=== PATIENT | female | born 1970 | race Caucasian/White ===

== ENCOUNTER 2018-10-29 22:25 | Observation (INO) | payer BC, SELFPAY ==
[2018-10-29] MEDS ORDERED: Ondansetron PF 4 MG/2 ML Vial ONE (23:04)
[2018-10-29 23:49] LABS: Hemoglobin 15.2 g/dL (12.0-16.0); Mean Corpuscular Hemoglobin 30.5 pg (27.0-31.0); Mean Corpuscular Volume 89.8 fL (78.0-98.0); Mean Platelet Volume 8.5 fL (7.4-10.4); Platelet Count 171 thou/uL (130-400); RBC Distribution Width 11.1 % (11.5-14.5); Red Blood Cell (RBC) Count 4.98 mill/uL (4.20-5.40); White Blood Cell (WBC) Count 9.8 thou/uL (4.8-10.8)
[2018-10-30 00:05] LABS: Band 5 % (5-11); Eosinophils 1 % (0-10); Lymphocytes 3 % (21-51); MDiff Complete? YES; Monocytes 4 % (0-10); Neutrophil 86 % (42-75); Reactive Lymphocytes 1 % (0-10)
[2018-10-30 00:12] LABS: BHCG - Serum Negative (NEGATIVE); Pregs Control Background? CLEAR/WHITE (CLR/WHITE); Pregs Control Bar Appear? YES (CONTROL BAR)
[2018-10-30] MEDS ORDERED: Morphine 4 MG/ML VIAL ONE (00:13)
[2018-10-30] MEDS ORDERED: Promethazine HCl 25 MG/ML VIAL ONE (00:13)
[2018-10-30 00:29] LABS: ALT (SGPT) 14 U/L (8-55); AST (SGOT) 25 U/L (5-34); Albumin 4.5 g/dL (3.5-5.0); Alkaline Phosphatase 79 U/L (40-150); Anion Gap 13 mmol/L (10-20); BUN (Urea Nitrogen) 18 mg/dL (7.0-18.7); Bilirubin, Total 0.8 mg/dL (0.2-1.2); Calc. Creatinine Clearance 0 mL/min (70-130); Calcium 10.1 mg/dL (7.8-10.44); Carbon Dioxide 22 mmol/L (22-29); Chloride 109 mmol/L (98-107); Estimated GFR-MDRD 77; Glucose 137 mg/dL (70-105); Lipase 25 U/L (8-78); Potassium 3.6 mmol/L (3.5-5.1); Protein, Total 7.5 g/dL (6.0-8.3); Sodium 140 mmol/L (136-145)
[2018-10-30] MEDS ORDERED: metroNIDAZOLE 500 MG/100 ML BAG ONE (01:02)
[2018-10-30] MEDS ORDERED: Vancomycin HCl 500 MG VIAL ONE (02:16)
[2018-10-30] MEDS ORDERED: Vancomycin HCl 25 MG/ML Oral PO SCH ×3 (03:00→09:00)
[2018-10-30] MEDS ORDERED: Vancomycin HCl 500 MG in Sodium Chloride 0.9% 100 ML IVPB SCH (03:00)
[2018-10-30 03:01] LABS: Bilirubin Negative (Negative); Blood, Urine Negative (Negative); Glucose, Urine (Dipstick) Negative (Negative); Leukocyte Negative (Negative); Nitrite Negative (Negative); Protein, Urine (Dipstick) Negative (Neg-Trace); Urobilinogen 0.2 mg/dL (0.2-1.0)
[2018-10-30 03:02] LABS: Clarity Clear (Clear)
[2018-10-30] MEDS ORDERED: Guaifenesin DM 100-10/5 ML UDCUP PO PRN (03:12)
[2018-10-30] MEDS ORDERED: Ondansetron PF 4 MG/2 ML Vial IVP PRN (03:12)
[2018-10-30] MEDS ORDERED: Acetaminophen 325 MG TAB PO PRN (03:12)
[2018-10-30] MEDS ORDERED: Zolpidem Tartrate 5 MG TAB PO PRN (03:12)
[2018-10-30 04:19] LABS: Hemoglobin 13.5 g/dL (12.0-16.0); Mean Corpuscular HGB CONC 33.9 g/dL (32.0-36.0); Mean Corpuscular Volume 91.5 fL (78.0-98.0); Mean Platelet Volume 7.9 fL (7.4-10.4); Platelet Count 147 thou/uL (130-400); RBC Distribution Width 11.2 % (11.5-14.5); Red Blood Cell (RBC) Count 4.36 mill/uL (4.20-5.40); White Blood Cell (WBC) Count 7.9 thou/uL (4.8-10.8)
[2018-10-30] MEDS ORDERED: Ondansetron PF 4 MG/2 ML Vial ONE (04:28)
[2018-10-30] MEDS: metroNIDAZOLE 500 MG in Premix Bag 1 BAG IVPB SCH ×3 (04:33→21:42)
[2018-10-30 04:53] LABS: Band 7 % (5-11); Lymphocytes 4 % (21-51); MDiff Complete? YES; Monocytes 5 % (0-10); Neutrophil 84 % (42-75)
[2018-10-30 06:33] LABS: Lactic Acid 2.3 mmol/L (0.5-2.2)
[2018-10-30] MEDS ORDERED: ISOVUE-370 76%-LOCM 1 ML ONE (08:11)
[2018-10-30] MEDS: Vancomycin HCl 25 MG/ML Oral PO SCH ×4 (09:50→19:51)
--- NOTE | 2018-10-30 09:57 | CT ---
PRELIMINARY REPORT/[facility]/EMERGENTY AFTER-HOURS PROCEDURE CT Abdomen and Pelvis With Contrast EXAM DATE/TIME: 10/30/2018 1:20 AM CLINICAL HISTORY: 48 years old, female; Pain; Abdominal pain; Acute; Patient HX: 48/f PT presents with complaint of trent sea, vomiting, diarrhea, and abdominal cramping for the past three days. States she has a HX of lupus and cdiff, has had a fecal transplant. States this feels similar to her last episode of cdiff. Descr ibes very watery stool, frequent diarrhea. Also having body aches. TECHNIQUE: Imaging protocol: Axial computed tomography images of the abdomen and pelvis with intravenous contras t. Coronal reformatted images were created and reviewed. COMPARISON: No relevant prior studies available. FINDINGS: Lower thorax: No acute findings. ABDOMEN: Liver: No liver masses. Gallbladder and bile ducts: Surgical changes of cholecystectomy. No ductal dilation. Pancreas: No pancreatic mass or ductal dilation. Spleen: No splenic masses. Adrenals: No adrenal nodules. Kidneys and ureters: Symmetric perfusion of the kidneys. No enhancing mass or hydronephrosis. Stomach and bowel: Surgical changes of the greater curvature of the stomach. The colon is fluid fille d. No significant wall thickening or pericolonic inflammation. Appendix: Normal appendix. PELVIS: Bladder: Unremarkable as visualized. Reproductive: The uterus and ovaries are nonvisualized. ABDOMEN and PELVIS: Intraperitoneal space: Normal. No free air. No significant fluid collection. Bones/joints: No acute fracture. No dislocation. Soft tissues: Unremarkable. Vasculature: Normal. No abdominal aortic aneurysm. Lymph nodes: Normal. No enlarged lymph nodes. IMPRESSION: Fluid-filled colon consistent with provided history of diarrhea. No significant colonic wall thickeni ng or pericolonic inflammation. No bowel obstruction. Thank you for allowing us to participate in the care of your patient. Dictated and Authenticated by: Nithya Daugherty MD 10/30/2018 2:45 AM Central Time ([place] & [place]) FINAL REPORT EMERGENCY AFTER HOURS CT ABDOMEN AND PELVIS: Date: 10/30/18 FINDINGS/IMPRESSION: I agree with the preliminary report provided by Lakeisha. POS:
[2018-10-30] MEDS ORDERED: Morphine 2 MG/ML SYRINGE SLOW IVP PRN (10:16)
[2018-10-30] MEDS ORDERED: Bacteriostatic Water 30 ML VIAL FS PRN (10:23)
--- NOTE | 2018-10-30 11:34 | HP ---
CHIEF COMPLAINT: Nausea, diarrhea, and vomiting. HISTORY OF PRESENT ILLNESS: This patient is a 48-year-old female, who presented via the Emergency Department. 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 The patient has history of lupus and Sjogren disease. She has a history of recurrent C. diff colitis several years ago that ultimately failed medical therapy and required fecal transplant. The fecal transplant actually was successful for period of time. The patient on this occasion reports that she began having some nausea and diarrhea over the weekend about 3 days ago. Vomiting was most pronounced starting on Sunday. She felt like this was very similar to her prior C. diff infections. She had associated body aches in the neck area. This was a common manifestation of her lupus previously when she has had other illness. She has not been able to keep down any p.o.'s dose since yesterday. She describes her stool as watery with fatty particles and her emesis as charlene in color. REVIEW OF SYSTEMS: Denies fever. She does have some chills. She reports headache, neck pain, and general myalgias. She has some nasal congestion, sore throat, and dry mouth. Reports a dry cough since the weekend. Denies wheezes. She has some history of palpitations and chest pains, which have been present with this episode. She denies hematemesis or hematochezia. All other systems reviewed and all pertinent positives and negatives noted in history of present illness. PAST MEDICAL HISTORY: Systemic lupus erythematosus, Sjogren disease, asthma, and C. diff infection x4 in 2016, ultimately treated with fecal transplant. PAST SURGICAL HISTORY: Gastric sleeve in August of 2017, cholecystectomy in 2005, and total hysterectomy in 1998. FAMILY HISTORY: Mother had rheumatoid arthritis. She 15 years ago. Father had hypertension and 2 MIs. Brother had psoriasis. 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 She is a nonsmoker, nondrinker, and nondrug user. She lives with her . She is full code. is a surrogate decision maker. ALLERGIES: NONE. MEDICATIONS: 1. Lyrica 50 mg p.o. b.i.d. 2. Nabumetone 50 mg b.i.d. 3. Hydrochloroquine 200 mg b.i.d. 4. Promethazine 25 mg q.6 hours p.r.n. 5. Tizanidine 4 mg q.8 hours p.r.n. 6. Metoprolol 50 mg b.i.d. 7. Sertraline 100 mg daily. 8. Methylprednisolone 4 mg p.o. daily. PHYSICAL EXAMINATION: VITAL SIGNS: BP is 138/93, pulse 77, respirations 18, temperature 98.2, and O2 saturation 97% on room air. GENERAL APPEARANCE: Age-appropriate female, in no distress. She is awake, alert, oriented, pleasant, cooperative, and in no distress. HEENT: PERRL. She has some erythema of the pharynx. She has a bit of a dry oral mucosa. NECK: Some mild anterior tenderness to palpation without lymphadenopathy or JVD. HEART: Regular rate and rhythm without murmurs, gallops, or rubs. LUNGS: Clear to auscultation bilaterally. Good chest wall expansion and air exchange. ABDOMEN: Soft and nondistended. There is tenderness to palpation in the left jaqueline abdomen, epigastric area without significant guarding or rebound. No masses. No hepatosplenomegaly. EXTREMITIES: Warm and dry. No cyanosis, clubbing, or edema. Peripheral pulses present and equal. NEUROLOGIC: The patient appears fully intact with no focal deficits. PSYCH: The patient has normal affect and behavior. LABORATORY DATA: White count 9.8 and repeat was 7.9, hemoglobin 15.2, platelets 171. Sodium 140, potassium 3.6, chloride 109, CO2 is 22, BUN 18, creatinine 0.8, glucose 137, lactic acid 3.6, and calcium 10.1. LFTs normal. UA is normal. C. diff is positive. CT abdomen and pelvis shows a fluid-filled colon with some thickened colonic wall, but no other specific findings, formal read is pending. IMPRESSION AND PLAN: 1. Recurrent Clostridium difficile colitis. This patient has had 4 prior episodes ultimately being resistant to medical therapy and requiring fecal transplantation that was over 3 years ago. Now, she has recurrent episode. She has had IV vancomycin and Flagyl in the Emergency Department. We will continue with the IV metronidazole and vancomycin for now. We will consult Gastroenterology for recommendations given the fact that she has already failed medical therapies in the past. 2. Nausea and vomiting. Continue to treat symptomatically. The patient reports that she has had some adverse reaction to Zofran causing some hiccups in the past. Therefore, we will try to stay with the Phenergan. 3. History of lupus with Sjogren's. The patient is unable to take p.o.'s presently. When she is over the nausea can resume her hydroxychloroquine, tizanidine, and Lyrica in the meantime. We will give her IV prednisone, start IV methylprednisolone. Job ID: [id number]
[2018-10-30 12:28] VITALS: BMI 23.5
[2018-10-30] MEDS ORDERED: Promethazine HCl 12.5 MG in Sodium Chloride 0.9% 50 ML IVPB PRN (13:07)
[2018-10-30] MEDS: Promethazine HCl 25 MG/ML VIAL IM/IV PRN (13:10)
[2018-10-30] MEDS: Sodium Chloride 0.9% 1,000 ML IV SCH (15:21)
[2018-10-30] MEDS: Dicyclomine 10 MG CAP PO PRN (19:51)
--- NOTE | 2018-10-30 23:26 | CON ---
DATE OF CONSULTATION: 10/30/2018 REASON FOR CONSULTATION: Nausea, vomiting, diarrhea. 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 She is doing well until 4 days ago, when she began developing recurrent watery diarrhea more than 10 times a day. She describes associated abdominal cramps that travel from below up to the epigastrium, associated with lots of gurgling noises. Two days ago, she began having recurrent nausea, vomiting, and dry heaves. She denies any rectal bleeding or hematochezia. She did have some mild chills, but no apparent fever. Her symptoms are reminiscent of previous C difficile colitis, where she had 4 bouts of colitis over a span of 2 years that eventually culminated in a fecal transplant in January of 2017. She was on probiotic for several months after the fecal transplant. She had done well since that time and had a gastric sleeve with the resultant 100 pounds weight loss in the meanwhile. She has not been on any recent antibiotics. She has been on Plaquenil for lupus, but no other new medication other than Lyrica. She has no direct patient contact or any recent exposure history. PAST MEDICAL HISTORY: 1. Systemic lupus erythematosus. 2. Sjogren's. 3. Recurrent C diff infection with fecal transplant in 2017. 4. Status post gastric sleeve in 2018. 5. Status post cholecystectomy. 6. Status post total hysterectomy. CURRENT MEDICATIONS: Include: 1. Sertraline. 2. Tizanidine. 3. Promethazine p.r.n. 4. Metoprolol. 5. Plaquenil. 6. Lyrica. 7. Nabumetone. ALLERGIES: NONE. SOCIAL HISTORY: The patient is , has two children. No tobacco or alcohol usage. Lives in [place]. FAMILY HISTORY: Negative for any known GI problem, liver disease, or GI malignancy. REVIEW OF SYSTEMS: A 10-point review of system was completely negative prior to this admission other than more recent increase in joint pain requiring addition of Lyrica. PHYSICAL EXAMINATION: VITAL SIGNS: Temperature is 98.4, blood pressure 108/67, pulse is 78. GENERAL: She is alert, in no distress. HEENT: Shows anicteric sclerae. Oropharynx clear. NECK: Supple. CV: Shows normal S1, S2. Regular rate and rhythm. CHEST: Shows breath sounds. ABDOMEN: Soft, mildly and diffusely tender but no guarding, tensing or rebound. There is no distention. No tympany. She has active bowel sounds. EXTREMITIES: No edema. LABORATORY DATA: WBC 7.9, hemoglobin 13.5, and platelet count of 147. Sodium 140, potassium 2.6, chloride 109, CO2 of 22, creatinine 0.8, BUN of 18, bilirubin 0.8, AST 25, ALT 14, alkaline phosphatase 79, lipase of 25. Stool study showed positive C diff toxigenic PCR. ASSESSMENT: Acute uncomplicated Clostridium difficile colitis with symptomatology consists of watery diarrhea along with nausea, vomiting, and abdominal cramps. The patient has had previous recurrent Clostridium difficile over a span of 2 years that culminated in a fecal transplant and has been recurrence free for almost 2 years. RECOMMENDATIONS: 1. Continue with IV metronidazole as ordered and oral vancomycin 125 mg p.o. q.i.d. 2. We will give scheduled low-dose Phenergan q.6 hours for her severe nausea and vomiting as ondansetron causes severe hiccups. 3. We will treat her current course as her first acute bout with 10-day course of oral vancomycin followed by tapping course of vancomycin. 4. If patient has recurrence of C diff after this bout, I would recommend proceed with repeat fecal transplant at that time. 5. We will follow up. Job ID: [id number]
[2018-10-31] MEDS: metroNIDAZOLE 500 MG in Premix Bag 1 BAG IVPB SCH ×3 (04:56→22:11)
[2018-10-31] MEDS: Promethazine HCl 25 MG/ML VIAL IM/IV PRN ×2 (04:57→17:13)
[2018-10-31] MEDS: Sodium Chloride 0.9% 1,000 ML IV SCH ×2 (04:57→18:06)
[2018-10-31 07:25] LABS: #Eosinphils 0.1 thou/uL (0.0-0.7); #Monocytes 0.4 thou/uL (0.11-0.59); #Neutrophils 2.9 thou/uL (1.40-6.50); %Eosinophils 1.3 % (0.0-10.0); %Monocytes 8.5 % (0.0-10.0); %Neutrophils 67.1 % (42.0-75.0); Mean Corpuscular HGB CONC 34.2 g/dL (32.0-36.0); Mean Corpuscular Hemoglobin 30.6 pg (27.0-31.0); Mean Corpuscular Volume 89.4 fL (78.0-98.0); Mean Platelet Volume 8.1 fL (7.4-10.4); Platelet Count 128 thou/uL (130-400); Red Blood Cell (RBC) Count 3.94 mill/uL (4.20-5.40); White Blood Cell (WBC) Count 4.3 thou/uL (4.8-10.8)
[2018-10-31 07:43] LABS: Anion Gap 15 mmol/L (10-20); BUN (Urea Nitrogen) 15 mg/dL (7.0-18.7); Calc. Creatinine Clearance 123 mL/min (70-130); Calcium 8.9 mg/dL (7.8-10.44); Carbon Dioxide 15 mmol/L (22-29); Chloride 113 mmol/L (98-107); Estimated GFR-MDRD Greater than 90; Glucose 70 mg/dL (70-105); Potassium 3.3 mmol/L (3.5-5.1); Sodium 140 mmol/L (136-145)
[2018-10-31] MEDS: Dicyclomine 10 MG CAP PO PRN ×2 (08:23→17:13)
[2018-10-31] MEDS: Vancomycin HCl 25 MG/ML Oral PO SCH ×4 (08:23→20:17)
[2018-10-31] MEDS ORDERED: methylPREDNISolone Sod Succ 40 MG VIAL IVP SCH (09:00)
[2018-10-31] MEDS ORDERED: Pregabalin 50 MG CAP PO SCH (10:45)
[2018-10-31] MEDS ORDERED: Potassium Chloride 40 MEQ in Sodium Chloride 0.9% 250 ML 250 ML IVPB SCH (11:00)
--- NOTE | 2018-10-31 11:20 | PRG ---
DATE OF SERVICE: 10/31/2018 SUBJECTIVE: The patient is continuing to have frequent diarrhea. She has persistent diffuse abdominal discomfort. She has been able to drink water and keep that down. She is able to take p.o. medications and keep those down. OBJECTIVE: VITAL SIGNS: Temperature 98.8, pulse 68, respirations 16, O2 saturation 98% on room air, BP 103/66. GENERAL APPEARANCE: Age-appropriate female, in no distress. She is awake, alert, oriented, pleasant, and cooperative. HEART: Regular rate and rhythm. No murmurs, gallops, or rubs. LUNGS: Clear to auscultation bilaterally. ABDOMEN: Diffusely tender. No guarding. No rebound. Bowel sounds present. EXTREMITIES: Warm and dry without cyanosis, clubbing, or edema. LABORATORY DATA: White count 4.3, hemoglobin 12.0, platelets 128. Sodium 140, potassium 3.3, chloride 113, CO2 is 15, BUN 15, creatinine 0.66, calcium 8.9. IMPRESSION AND PLAN: 1. Clostridium difficile colitis in a patient with immunocompromised state and lupus and a history of recurrent Clostridium difficile colitis in the past. I have consulted GI, discussed with Dr. Snider. We will continue with treatment as a typical Clostridium difficile colitis with oral vancomycin and IV Flagyl and points will be when the patient can adequately maintain hydration and nutrition orally and take oral medications adequately, anticipate a 10-day course with the taper of the vancomycin. 2. Systemic lupus. Resuming the patient's home medications now that she feels she can actually take p.o. adequately. Job ID: [id number]
--- NOTE | 2018-10-31 17:15 | PRG ---
DATE OF SERVICE: 10/31/2018 SUBJECTIVE: Overall, the patient feels better. Nausea is less and she has not had any vomiting. Still having abdominal cramps. Diarrhea also has lessened, 4 episodes today versus 12 to 15 episodes before admission. PHYSICAL EXAMINATION: VITAL SIGNS: Temperature is 98.8, blood pressure 104/66, and pulse is 71. GENERAL: She is alert, in no distress. HEENT: Eyes exam shows anicteric sclerae. Oropharynx clear. NECK: Supple. CV: Shows normal S1 and S2. Regular rate and rhythm. CHEST: Shows a breath sounds. ABDOMEN: Mildly protuberant, but no distention. No tympany. She has active bowel sounds. Mildly tender diffusely. EXTREMITIES: Show no edema. LABORATORY DATA: WBCs 4.3, hemoglobin 12.0, platelet count is 128. Sodium 140, potassium 3.3, chloride 113, CO2 of 15, and creatinine 0.66. ASSESSMENT: 1. Recurrent Clostridium difficile, first episode since fecal transplant at 20 months ago. There is no fever or severe leukocytosis. Clinically improving on IV metronidazole and p.o. vancomycin. 2. CO2 of 15, we will continue to monitor. RECOMMENDATIONS: 1. Continue IV metronidazole and p.o. vancomycin. 2. We will keep on clear liquids as she does not want to be advanced, we will add Ensure Enlive. Job ID: [id number]
[2018-10-31] MEDS: Hydroxychloroquine Sulfate 200 MG TAB PO SCH (20:17)
[2018-10-31] MEDS: Pregabalin 50 MG CAP PO SCH (20:18)
[2018-10-31] MEDS: tiZANidine HCl 4 MG TAB PO SCH (20:19)
[2018-11-01] MEDS: metroNIDAZOLE 500 MG in Premix Bag 1 BAG IVPB SCH ×3 (05:22→21:35)
[2018-11-01] MEDS: Sodium Chloride 0.9% 1,000 ML IV SCH ×2 (05:24→13:47)
[2018-11-01] MEDS: Dicyclomine 10 MG CAP PO PRN ×2 (05:27→14:06)
[2018-11-01 06:55] LABS: #Eosinphils 0.1 thou/uL (0.0-0.7); #Lymphocytes 1.7 thou/uL (1.20-3.40); #Monocytes 0.5 thou/uL (0.11-0.59); #Neutrophils 1.7 thou/uL (1.40-6.50); %Basophils 0.8 % (0.0-1.0); %Eosinophils 3.5 % (0.0-10.0); %Monocytes 12.3 % (0.0-10.0); %Neutrophils 42.5 % (42.0-75.0); Hemoglobin 11.4 g/dL (12.0-16.0); Mean Corpuscular HGB CONC 34.3 g/dL (32.0-36.0); Mean Corpuscular Hemoglobin 31.2 pg (27.0-31.0); Mean Corpuscular Volume 90.8 fL (78.0-98.0); Mean Platelet Volume 8.1 fL (7.4-10.4); Platelet Count 123 thou/uL (130-400); RBC Distribution Width 11.2 % (11.5-14.5); Red Blood Cell (RBC) Count 3.66 mill/uL (4.20-5.40); White Blood Cell (WBC) Count 4.1 thou/uL (4.8-10.8)
[2018-11-01 07:13] LABS: Anion Gap 11 mmol/L (10-20); BUN (Urea Nitrogen) 6 mg/dL (7.0-18.7); Calc. Creatinine Clearance 127 mL/min (70-130); Calcium 9.1 mg/dL (7.8-10.44); Carbon Dioxide 17 mmol/L (22-29); Chloride 117 mmol/L (98-107); Estimated GFR-MDRD Greater than 90; Glucose 86 mg/dL (70-105); Potassium 3.6 mmol/L (3.5-5.1); Sodium 141 mmol/L (136-145)
[2018-11-01] MEDS: Promethazine HCl 25 MG/ML VIAL IM/IV PRN (07:29)
[2018-11-01] MEDS: Pregabalin 50 MG CAP PO SCH ×2 (08:59→20:13)
[2018-11-01] MEDS: Hydroxychloroquine Sulfate 200 MG TAB PO SCH ×2 (09:01→20:13)
[2018-11-01] MEDS: Vancomycin HCl 25 MG/ML Oral PO SCH ×4 (09:03→20:15)
--- NOTE | 2018-11-01 15:48 | PDOC.PN ---
- Subjective Encounter Start Date: 11/01/18 (f/u c diff) Encounter Start Time: 15:46 Subjective: Pt reports cramping this morning, nausea. -: feeling better now - reports bentyl helps. 7--8 bms today - Objective Resuscitation Status - Order Detail: 10/30/18 03:12 Resuscitation Status Routine Resuscitation Status: FULL: Full Resuscitation Vital Signs & Weight: Vital Signs (12 hours) Temp Pulse Resp BP Pulse Ox 11/01/18 12:36 97.6 F 65 16 127/84 97 11/01/18 07:54 98.4 F 52 L 16 145/72 H 92 L Weight Weight 160 lb 14.4 oz I&O: 10/31/18 11/01/18 11/02/18 06:59 06:59 06:59 Intake Total 2300 5550 Balance 2300 5550 Result Diagrams: 11/01/18 06:44 11/01/18 06:44 Phys Exam - Physical Examination Constitutional: NAD Respiratory: no wheezing, no rales, no rhonchi, clear to auscultation bilateral Cardiovascular: RRR Gastrointestinal: soft, non-tender, no distention, positive bowel sounds Musculoskeletal: no edema Neurological: non-focal Skin: no rash Dx/Plan (1) C. difficile colitis Status: Acute (2) Nausea and vomiting Code(s): R11.2 - NAUSEA WITH VOMITING, UNSPECIFIED Status: Acute (3) SLE (systemic lupus erythematosus related syndrome) Code(s): M32.9 - SYSTEMIC LUPUS ERYTHEMATOSUS, UNSPECIFIED Status: Chronic (4) Sjogren's disease Code(s): M35.00 - SICCA SYNDROME, UNSPECIFIED Status: Chronic (5) Leukopenia Code(s): D72.819 - DECREASED WHITE BLOOD CELL COUNT, UNSPECIFIED Status: Acute - Plan * Given improvement in sx with bentyl, will schedule this rather than prn * continue prn phenergan * * appreciate GI recommendations - on PO Vanc and IV flagyl * advance diet * d/c IVF * Pt desires d/c tomorrow - will make sure she tolerates changes and no IVF. * * leukopenia - mild - monitor * low bicarb c/w diarrhea - improved today, recheck in AM * * dvt prophy - ambulatory * gi prophy - not indicated code status full. * * reviewed plan of care with patient, no questions or further needs at end of eval
[2018-11-01] MEDS: Dicyclomine 10 MG CAP PO SCH (17:02)
--- NOTE | 2018-11-01 17:13 | PRG ---
DATE OF SERVICE: 11/01/2018 SUBJECTIVE: The patient feels much better today. She still has frequent loose watery bowel movements. Abdominal cramp is less with dicyclomine. There is mild nausea, but no vomiting. OBJECTIVE: VITAL SIGNS: Temperature is 98.8, blood pressure 144/84, and pulse of 57. GENERAL: She is alert, sitting up in no distress. HEENT: Shows anicteric sclerae. CV: Shows normal S1 and S2, regular rate and rhythm. CHEST: Shows a breath sounds. ABDOMEN: Soft, mildly tender. No guarding or rebound. She has active bowel sounds. EXTREMITIES: Show no edema. LABORATORY DATA: WBC is 4.1, hemoglobin 11.4, and platelet count 123. Electrolytes within normal range. Creatinine is 0.64. ASSESSMENT: Recurrent Clostridium difficile colitis, first episode since fecal transplant 20 months ago. Clinically, she is much improved. She still has frequent loose watery bowel movement, but controlled. RECOMMENDATIONS: 1. Continue with vancomycin 125 mg p.o. q.i.d. I would continue with IV metronidazole as an inpatient since she does not have any severe side effects other than severe metallic taste in her mouth. 2. More than likely the patient can be discharged tomorrow on vancomycin 125 p.o. q.i.d. x10 days along with dicyclomine 10 to 20 mg p.o. q.i.d. as needed for cramps. I would recommend a three week vancomycin taper course after her 10 days of vancomycin treatment. Low threshold for repeat fecal transplant should she get another recurrent Clostridium difficile infection. 3. Dr. Cheema to cover GI service tomorrow. Job ID: [id number]
[2018-11-01] MEDS: tiZANidine HCl 4 MG TAB PO SCH (20:13)
[2018-11-02] MEDS: Dicyclomine 10 MG CAP PO SCH ×3 (00:48→11:19)
[2018-11-02] MEDS: metroNIDAZOLE 500 MG in Premix Bag 1 BAG IVPB SCH ×2 (05:18→11:30)
[2018-11-02 06:48] LABS: #Eosinphils 0.2 thou/uL (0.0-0.7); #Lymphocytes 1.5 thou/uL (1.20-3.40); #Monocytes 0.4 thou/uL (0.11-0.59); #Neutrophils 2.1 thou/uL (1.40-6.50); %Basophils 1.1 % (0.0-1.0); %Eosinophils 3.6 % (0.0-10.0); %Lymphocytes 35.8 % (21.0-51.0); %Monocytes 9.9 % (0.0-10.0); %Neutrophils 49.6 % (42.0-75.0); Hemoglobin 11.7 g/dL (12.0-16.0); Mean Corpuscular HGB CONC 34.1 g/dL (32.0-36.0); Mean Corpuscular Hemoglobin 30.6 pg (27.0-31.0); Mean Corpuscular Volume 89.7 fL (78.0-98.0); Mean Platelet Volume 8.7 fL (7.4-10.4); Platelet Count 132 thou/uL (130-400); RBC Distribution Width 11.3 % (11.5-14.5); Red Blood Cell (RBC) Count 3.84 mill/uL (4.20-5.40); White Blood Cell (WBC) Count 4.2 thou/uL (4.8-10.8)
[2018-11-02 07:08] LABS: Anion Gap 12 mmol/L (10-20); BUN (Urea Nitrogen) Less than 4 mg/dL (7.0-18.7); Calc. Creatinine Clearance 125 mL/min (70-130); Calcium 9.2 mg/dL (7.8-10.44); Carbon Dioxide 19 mmol/L (22-29); Chloride 115 mmol/L (98-107); Estimated GFR-MDRD Greater than 90; Glucose 101 mg/dL (70-105); Sodium 143 mmol/L (136-145)
[2018-11-02] MEDS ORDERED: Potassium Chloride 20 MEQ TAB PO SCH ×2 (07:15→12:00)
[2018-11-02 07:41] VITALS: BP 117/73; TEMP 98.5
[2018-11-02] MEDS: Pregabalin 50 MG CAP PO SCH (08:22)
[2018-11-02] MEDS: Hydroxychloroquine Sulfate 200 MG TAB PO SCH (08:22)
[2018-11-02] MEDS: Vancomycin HCl 25 MG/ML Oral PO SCH ×2 (08:25→11:17)
--- NOTE | 2018-11-02 18:47 | DIS ---
DATE OF ADMISSION: 10/30/2018 DATE OF DISCHARGE: 11/02/2018 CONSULTANTS: Dr. Snider of Gastroenterology. MEDICATIONS: Reconciled. New medications: 1. Dicyclomine 10 mg capsule one or two capsules every 6 hours as needed for cramping. Prescription provided for 90 capsules. 2. Vancomycin 125 mg p.o. 4 times daily x10 days, then 3 times daily x7 days, then 2 times daily for 7 days, then daily for 7 days. Prescription for 82 capsules. 3. Potassium chloride 20 mEq tablets, 2 tablets p.o. daily for a week. Medications to continue: 1. Plaquenil 200 mg b.i.d. 2. Metoprolol succinate 50 mg b.i.d. 3. Nabumetone 500 mg daily. 4. Lyrica 50 mg b.i.d. 5. Phenergan 25 mg p.o. q.6 hours p.r.n. nausea. Prescription provided for 30 tablets. 6. Zoloft 100 mg daily. 7. Methylprednisolone per prior routine. 8. Tizanidine 4 mg at bedtime. Medications discontinued are none. FINAL DIAGNOSES: 1. Clostridium difficile colitis. 2. Nausea and vomiting, secondary to above. 3. Hypokalemia, mild. 4. Leukopenia, mild. 5. Anemia, mild. SECONDARY DIAGNOSES: 1. Lupus. 2. Sjogren syndrome. 3. Asthma. HISTORY OF PRESENT ILLNESS: Ms. Abdi is a 48-year-old female with the above medical problems, who presented to the emergency room with a complaint of diarrhea, vomiting, and nausea. This was similar to her prior Clostridium difficile infections. HOSPITAL COURSE: The patient was admitted to the hospital, started on p.o. vancomycin and IV metronidazole, fluid rehydration, and management of the nausea and vomiting. She did undergo a Clostridium difficile test, which was positive. In consultation with Dr. Snider, she has been continued on these medications. The cramping has improved with scheduling the dicyclomine. The diarrhea has also slowed down. The patient is tolerating liquids and able to stay hydrated. Her appetite has improved, and she is able to eat small amounts and consistent with her usual routine given history of gastric sleeve. The patient is overall feeling improved, does meet criteria for discharge to home. She does have a metabolic acidosis, which has improved over the past few days and is consistent with the diarrhea. I recommend that she follow up on this as well as hypokalemia as an outpatient with her regular physician, and then she follow up the c diff/diarrhea with her usual planning technician. PHYSICAL EXAMINATION: VITAL SIGNS: On day of discharge, blood pressure 117/73, temperature 98.5, pulse 56, respirations 16, and saturation is 98% on room air. GENERAL: Awake, alert, responsive, in no apparent distress. Able to speak in full sentences. LUNGS: Clear to auscultation bilateral. HEART: Normal S1, S2. Regular rate and rhythm. No audible murmurs. ABDOMEN: Soft. Present bowel sounds. Nontender, nondistended. EXTREMITIES: No pitting edema. LUTZ FINDINGS AND TEST RESULTS: CBC today is 4.2, 11.7, 34.4, and 132. Chemistry; 143, 3.0, 115, 19, less than 4, 0.65, 101 with a calcium of 9.2. LFTs on admission normal. Urinalysis negative. Clostridium difficile positive for antigen and toxin. Rapid parasite screen negative. Stool lactoferrin elevated. Campylobacter shiga toxin negative. Stool culture, many normal enteric angela. Abdomen and pelvis CT scan shows fluid-filled colon consistent with provided history of diarrhea. No significant colon wall thickening or pericolonic inflammation. No bowel obstruction. DIET: As tolerated with good hydration. MEDICATIONS: Called into the [facility] on [address] [place] [address] in [facility], on call pharmacy technician who received the telephone order confirmed that they do have p.o. vancomycin in stock. ACTIVITY: As tolerated. Reviewed with this patient the hospitalization, medications at discharge, the importance of followup and to seek care precautions. She demonstrates understanding. The patient is traveling back to [place] today and was advised to anticipate frequent rest stops in planning for the diarrhea/discomfort of travel. Total time coordinating discharge is 45 minutes. Job ID: [id number] [facility]
== END 2018-11-02 15:33 | disposition home or self-care (01) ==
LOC: ERS 22:25 → ERHOLD 10-30 02:00 → T4-A 10-30 12:04
PROVIDERS: ADMIT Internal Medicine; ATTEND Internal Medicine
DX: A04.71 Enterocolitis due to Clostridium difficile, recurrent (principal); E87.6 Hypokalemia; D64.9 Anemia, unspecified; M32.9 Systemic lupus erythematosus, unspecified; M35.00 Sjogren syndrome, unspecified; J45.909 Unspecified asthma, uncomplicated; Z98.84 Bariatric surgery status; Z90.49 Acquired absence of other specified parts of digestive tract; Z90.710 Acquired absence of both cervix and uterus; Z79.52 Long term (current) use of systemic steroids; Z79.2 Long term (current) use of antibiotics; Z79.899 Other long term (current) drug therapy
CPT/HCPCS: 36415; 74177; 80048; 80053; 81003; 83605; 83630; 83690; 84703; 85007; 85025; 85027; 87045; 87046; 87081; 87324; 87328; 87329; 87449; 87493; 87899; 96361; 96365; 96366; 96367; 96368; 96372; 96375; 96376; G0378; J0500; J2270; J2405; J2550; J3370; J3480; J7050; Q9966